=== PATIENT | female | born 1995 | race Caucasian/White ===

== ENCOUNTER 2020-09-07 11:59 | Emergency (ER) | payer OTHER ==
[~2020-09-07 11:59] MED LIST: BENTYL 20MG TAB20 MG PO; LODINE CAP 300300 MG PO; NAPROSYN500 MG PO; PRENATAL TABLE1 EAC1 PO; TYLENOL 500 MG500 MG PO; ZOFRAN ODT 4 MG4 MG PO
[2020-09-07] MEDS ORDERED: HYDROCODON-ACE1 EAC4 PO (13:35)
== END 2020-09-07 14:09 | disposition home or self-care (01) ==
LOC: ER1 11:59
DX: S82.51XA Displaced fracture of medial malleolus of right tibia, initial encounter for closed fracture (principal); S92.425A Nondisplaced fracture of distal phalanx of left great toe, initial encounter for closed fracture; F17.200 Nicotine dependence, unspecified, uncomplicated; W22.8XXA Striking against or struck by other objects, initial encounter; Y92.009 Unspecified place in unspecified non-institutional (private) residence as the place of occurrence of the external cause
CPT/HCPCS: 29515; 73590; 73610; 73660; 99283